=== PATIENT | male | born 1955 | race Caucasian/White ===

== ENCOUNTER → 2020-12-17 | Day surgery (SDC) | payer MEDICARE, BC ==
[~2020-12-17] MED LIST: Lactated Ringers 1,000 ML IV SCH
[2020-12-17 11:38] VITALS: BP 168/87; PULSE 68
--- NOTE | 2020-12-17 14:30 | OR ---
DATE OF OPERATION: 12/17/2020 PREOPERATIVE DIAGNOSIS: CHANGE IN BOWEL FUNCTION AND POSTERIOR BACK PAIN. POSTOPERATIVE DIAGNOSIS: CHANGE IN BOWEL FUNCTION AND POSTERIOR BACK PAIN. SURGEON: Richard Guerrero MD PROCEDURE: TOTAL COLONOSCOPY. ANESTHESIA: MAC. SPECIMEN: None. FINDINGS: An occasional scattered diverticula throughout the colon, but they should be of no significance. Otherwise, his colonoscopy is normal. I did not find any evidence for structural changes causing his bowel function change or pain. INDICATIONS: This 65-year-old male referred for evaluation of back pain up around the kidneys and a change in bowel function. He has not had a prior colonoscopy. DESCRIPTION OF PROCEDURE: After adequate preparation, the colonoscope was inserted into the rectum. This was easily passed all the way to the cecum. Confirmation of the cecum was made by visualization of the ileocecal valve and the light shining through the right lower quadrant. Photograph of the valve was taken. The bowel prep was excellent. On withdrawal of the scope, there were a few diverticula scattered throughout the colon, but these did not show any evidence of inflammation or bleeding. There were no polyps, masses, or evidence of colitis. Rectal and anal examinations were normal. There were nose no internal hemorrhoids. Air was suctioned from the colon and the scope removed. BPB/MODL /[id number]
== END ==
LOC: CC.SDS 08:54
PROVIDERS: ATTEND Surgery
DX: K57.30 Diverticulosis of large intestine without perforation or abscess without bleeding (principal); E11.9 Type 2 diabetes mellitus without complications; I10 Essential (primary) hypertension; E78.2 Mixed hyperlipidemia; N39.0 Urinary tract infection, site not specified; Z79.84 Long term (current) use of oral hypoglycemic drugs
CPT/HCPCS: 45378; J7120; 00811